=== PATIENT | male | born 1995 | race Hispanic/Latino ===

== ENCOUNTER 2017-09-14 12:19 | Emergency (ER) | payer OTHER ==
[~2017-09-14] VITALS: Ht 182.9 cm; Wt 100.9 kg
[~2017-09-14 12:19] MED LIST: NOHOMEMEDS
[2017-09-14 15:09] LABS: BASOPHIL (%) 0.2 % (0-1); EOSINOPHIL COUNT 0.1 K/uL (0-0.3); HEMATOCRIT 41.9 % (38.0-50.0); HEMOGLOBIN 14.3 G/DL (12.5-16.6); IMMATURE GRANULOCYTE (%) 0.8 % (0.0-0.7); LYMPHOCYTE (%) 26.4 % (15-42); LYMPHOCYTE COUNT 2.7 K/uL (1.0-2.8); MCH 30.1 PG (29.0-34.0); MCHC 34.1 G/DL (30.0-36.0); MCV 88.2 FL (86-99); MONOCYTE (%) 8.3 % (3-12); MONOCYTE COUNT 0.9 K/uL (0-0.8); NEUTROPHIL (%) 63.3 % (45-76); NEUTROPHIL COUNT 6.5 K/uL (1.8-6.4); PLATELET COUNT 253 K/uL (156-360); RBC DIS.WIDTH-CV 12.7 % (11.8-14.6); RBC DIS.WIDTH-SD 41.1 % (39-53); RED BLOOD COUNT 4.75 M/uL (4.00-5.50); WHITE BLOOD COUNT 10.3 K/uL (4.1-10.2)
[2017-09-14 15:17] LABS: ALBUMIN 4.1 g/dL (3.2-4.8); CHLORIDE 107 mEq/L (99-109); POTASSIUM 3.5 mEq/L (3.7-5.4); SODIUM 141 mEq/L (136-147)
[2017-09-14 15:19] LABS: GLUCOSE 97 mg/dL (70-99)
[2017-09-14 15:20] LABS: TOTAL PROTEIN 7.7 g/dL (6.4-8.3)
[2017-09-14] MEDS ORDERED: KLONOPIN0.5 M1 PO (15:20)
[2017-09-14] MEDS ORDERED: ZYPREXA5 MG PO (15:20)
[2017-09-14 15:21] LABS: TOTAL BILIRUBIN 0.3 mg/dL (0.0-1.0)
[2017-09-14 15:23] LABS: ALKALINE PHOSPHATASE 84 IU/L (3-129); CREATININE 0.7 mg/dL (0.6-1.3); GFR ESTIMATE (CALCULATED) > 59 mL/min/ (58.99-99999)
[2017-09-14 15:24] LABS: UREA NITROGEN (BUN) 12 mg/dL (9-23)
[2017-09-14 15:25] LABS: AST (GOT) 65 IU/L (2-34)
[2017-09-14 15:26] LABS: ALT (GPT) 131 IU/L (3-49)
[2017-09-14 16:01] LABS: HDL CHOLESTEROL 31 MG/DL (Desirable>=40); LDL CHOLESTEROL 63 mg/dL (Desirable<100); NON-HDL CHOLESTEROL 86 mg/dL (Desirable<160); TOTAL CHOLESTEROL 117 mg/dL (Desirable<200); TRIGLYCERIDES 115 MG/DL (Normal: <150)
[2017-09-14 17:43] VITALS: BP 115/62
== END 2017-09-14 17:43 | disposition home or self-care (01) ==
LOC: EME 12:19
PROVIDERS: Emergency Medicine
DX: F84.0 Autistic disorder (principal); R45.1 Restlessness and agitation
CPT/HCPCS: 80053; 80061; 81003; 82306; 85025; 90839; J1200; J1630; J2060; J3486

== ENCOUNTER 2017-09-16 08:50 | Emergency (ER) | payer OTHER ==
[~2017-09-16] VITALS: Ht 172.7 cm; Wt 98.3 kg
[~2017-09-16 08:50] MED LIST changes: +KLONOPIN0.5 M1 PO; +ZYPREXA5 MG PO
[2017-09-16 10:29] LABS: HEMATOCRIT 42.6 % (38.0-50.0); HEMOGLOBIN 14.8 G/DL (12.5-16.6); MCH 30.6 PG (29.0-34.0); MCHC 34.7 G/DL (30.0-36.0); MCV 88.2 FL (86-99); PLATELET COUNT 273 K/uL (156-360); RBC DIS.WIDTH-CV 12.7 % (11.8-14.6); RBC DIS.WIDTH-SD 41.1 % (39-53); RED BLOOD COUNT 4.83 M/uL (4.00-5.50); WHITE BLOOD COUNT 14.6 K/uL (4.1-10.2)
[2017-09-16 10:44] LABS: APPEARANCE CLEAR ((CLEAR)); BILIRUBIN NEGATIVE; BLOOD NEGATIVE; COLOR YELLOW ((YELLOW)); GLUCOSE (STRIP) NEGATIVE; KETONES NEGATIVE; LEUKOCYTES NEGATIVE; NITRITE NEGATIVE; PROTEIN (STRIP) NEGATIVE; SPECIFIC GRAVITY 1.017 (1.000-1.030); UCUL ADDED? NO; UROBILINOGEN 0.2 MG/DL (0.2-1.0)
[2017-09-16 10:54] LABS: AMPHETAMINE NEGATIVE (500 ng/mL); BARBITURATES NEGATIVE (200 ng/mL); BENZODIAZEPINES PRESUMPTIVE POSITIVE (150 ng/mL); BUPRENORPHINE NEGATIVE (10 ng/mL); COCAINE NEGATIVE (150 ng/mL); METHADONE NEGATIVE (200 ng/mL); METHAMPHETAMINE NEGATIVE (500 ng/mL); OPIATES (MORPHINE) NEGATIVE (100 ng/mL); OXYCODONE NEGATIVE (100 ng/mL); PHENCYCLIDINE NEGATIVE (25 ng/mL); PROPOXYPHENE NEGATIVE (300 ng/mL); THC CANNABINOIDS NEGATIVE (50 ng/mL); TRICYCLIC ANTIDEPRESSANTS NEGATIVE (300 ng/mL)
[2017-09-16 11:00] LABS: ALBUMIN 4.7 g/dL (3.2-4.8); CHLORIDE 104 mEq/L (99-109); POTASSIUM 4.3 mEq/L (3.7-5.4); SODIUM 140 mEq/L (136-147)
[2017-09-16 11:03] LABS: GLUCOSE 93 mg/dL (70-99); TOTAL PROTEIN 8.3 g/dL (6.4-8.3)
[2017-09-16 11:05] LABS: SERUM ETHYL ALCOHOL < 10 mg/dL; TOTAL BILIRUBIN 0.5 mg/dL (0.0-1.0)
[2017-09-16 11:06] LABS: ALKALINE PHOSPHATASE 103 IU/L (3-129); CREATININE 0.8 mg/dL (0.6-1.3); GFR ESTIMATE (CALCULATED) > 59 mL/min/ (58.99-99999)
[2017-09-16 11:07] LABS: UREA NITROGEN (BUN) 17 mg/dL (9-23)
[2017-09-16 11:08] LABS: AST (GOT) 68 IU/L (2-34)
[2017-09-16 11:09] LABS: ALT (GPT) 134 IU/L (3-49)
[2017-09-16 11:21] LABS: BENZODIAZEPINES, URINE SCREEN POSITIVE (200 ng/mL)
[2017-09-16 13:03] LABS: HEMOGLOBIN A1c (GLYCOHEMOGLOB) 5.1 % (Below 5.7)
[2017-09-16] MEDS ORDERED: ATARAX,VISTARIL25 MG PO (14:46)
[2017-09-16] MEDS ORDERED: ATIVAN1 MG PO (14:46)
[2017-09-16 17:58] VITALS: BP 118/65
== END 2017-09-16 17:59 | disposition home or self-care (01) ==
LOC: EME 08:50
PROVIDERS: Emergency Medicine
DX: F84.0 Autistic disorder (principal); R45.1 Restlessness and agitation; F31.9 Bipolar disorder, unspecified
CPT/HCPCS: 80053; 81003; 83036; 84999; 85027; 90839; G0480; J1200; J1630; J2060; J3486

== ENCOUNTER 2017-09-18 15:53 | Emergency (ER) | payer OTHER ==
[~2017-09-18] VITALS: Ht 165.1 cm; Wt 97.9 kg
[~2017-09-18 15:53] MED LIST changes: +ATARAX,VISTARIL25 MG PO; +ATIVAN1 MG PO
[2017-09-20 12:17] VITALS: BP 112/67
== END 2017-09-20 12:19 ==
LOC: EME 15:53
DX: F84.0 Autistic disorder (principal); F91.9 Conduct disorder, unspecified
CPT/HCPCS: 90837; J1200; J1630; J2060; J3486